=== PATIENT | male | born 1990 | race Caucasian/White ===

== ENCOUNTER 2019-11-18 22:38 | Emergency (ER) | payer OTHER ==
[~2019-11-18] VITALS: Ht 167.6 cm; Wt 103.3 kg
--- NOTE | 2019-11-18 22:52 | NUR ---
PT AMBULATORY TO ROOM, STEADY GAIT, NO SIGNS OF DISTRESS.
--- NOTE | 2019-11-18 23:11 | NUR ---
ERP HAS BEEN TO BEDSIDE. PT UPDATED ON POC, EDUCATED THAT COVID TEST RESULTS TAKE 24-48 HOURS TO RESULT. PT PLACED ON CARDIAC, BP AND O2 MONITORS. PT ON PHONE, NO SIGNS OF DISTRESS.
[2019-11-18 23:18] LABS: BASOPHILS # (AUTO) 0.05 x10^3/uL (0-0.1); BASOPHILS % (AUTO) 1 % (0-1); EOSINOPHILS # (AUTO) 0.05 x10^3/uL (0-0.4); EOSINOPHILS % (AUTO) 1 % (1-7); LYMPHOCYTES # (AUTO) 2.03 x10^3/uL (1-3.4); LYMPHOCYTES % (AUTO) 30 % (22-44); MD NO; MEAN CORPUSCULAR HEMOGLOBIN 31.8 pg (27.5-34.5); MEAN CORPUSCULAR HGB CONC 33.9 g/dL (33.2-36.2); MEAN CORPUSCULAR VOLUME 93.7 fL (81-97); MEAN PLATELET VOLUME 9.4 fL (7.4-10.4); MONOCYTES # (AUTO) 0.51 x10^3/uL (0.2-0.8); MONOCYTES % (AUTO) 8 % (2-9); NEUTROPHILS # (AUTO) 4.21 x10^3/uL (1.8-6.8); NEUTROPHILS % (AUTO) 61 % (42-75); PLATELET COUNT 216 x10^3/uL (130-400); RED BLOOD COUNT 5.52 x10^6/uL (4.38-5.82); RED CELL DISTRIBUTION WIDTH 13.2 % (9.4-14.8)
[2019-11-18 23:29] LABS: ALBUMIN 3.8 g/dL (3.4-5.0); ANION GAP 3 mmol/L (5-15); CALCIUM 8.8 mg/dL (8.5-10.1); CHLORIDE 109 mmol/L (98-107); CREATININE 1.43 mg/dL (0.7-1.3)
--- NOTE | 2019-11-19 00:20 | NUR ---
PT SLEEPING, EYE CLOSED, RESPIRATIONS EVEN AND UNLABORED, VSS, NO SIGNS OF DISTRESS.
[2019-11-19 01:03] VITALS: BP 114/71
== END 2019-11-19 01:05 | disposition home or self-care (01) ==
LOC: ED 23:08
DX: B34.9 Viral infection, unspecified (principal); R05 Cough; Z20.828 Contact with and (suspected) exposure to other viral communicable diseases; R94.31 Abnormal electrocardiogram [ECG] [EKG]
CPT/HCPCS: 36415; 71045; 80048; 82040; 85025; 87635; 93005; 99285

== ENCOUNTER 2020-02-04 16:31 | Emergency (ER) | payer OTHER ==
[~2020-02-04] VITALS: Ht 170.2 cm; Wt 102.0 kg
[2020-02-04 16:41] VITALS: BP 137/91
--- NOTE | 2020-02-04 19:48 | NUR ---
NO ANSWER IN LOBBY
--- NOTE | 2020-02-04 19:52 | NUR ---
NO ANSWER IN LOBBY
== END 2020-02-04 19:53 | disposition left against medical advice (07) ==
LOC: ED 19:30
DX: R43.0 Anosmia (principal); R43.2 Parageusia; R43.8 Other disturbances of smell and taste
CPT/HCPCS: 99281

== ENCOUNTER 2020-03-30 15:36 | Emergency (ER) | payer OTHER ==
[~2020-03-30] VITALS: Ht 167.6 cm; Wt 104.0 kg
[2020-03-30 15:42] VITALS: BP 143/84
[2020-03-30] MEDS ORDERED: FLUORESCEIN OPHTHALMIC 1 MG STRIP ONE (15:46)
[2020-03-30] MEDS ORDERED: PROPARACAINE OPHTH 0.5%, 15ML ONE ×2 (15:47→17:27)
== END 2020-03-30 17:57 | disposition home or self-care (01) ==
LOC: ED 17:11
DX: T15.01XA Foreign body in cornea, right eye, initial encounter (principal); X58.XXXA Exposure to other specified factors, initial encounter; Y93.89 Activity, other specified; Y92.89 Other specified places as the place of occurrence of the external cause; Y99.8 Other external cause status
CPT/HCPCS: 65220; 65222; 99283; 99284

== ENCOUNTER 2020-08-17 18:15 | Emergency (ER) | payer OTHER ==
[~2020-08-17] VITALS: Ht 172.7 cm; Wt 104.4 kg
[2020-08-17] MEDS ORDERED: LIDOCAINE 1%, 10ML INFIL ONE (18:30)
[2020-08-17] MEDS ORDERED: DIPH,PERTUSS(ACELL),TET VAC/PF 0.5 ML IM-VACC ONE ×2 (19:30→19:45)
[2020-08-17] MEDS ORDERED: LIDOCAINE-MPF 1%, 2ML ONE (19:49)
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
[2020-08-17 20:33] VITALS: BP 111/79
--- NOTE | 2020-08-17 20:44 | NUR ---
Patient given discharge instructions and they have confirmed that they understand the instructions. Patient ambulatory with steady gait. No questions at time of discharge.
== END 2020-08-17 20:54 | disposition home or self-care (01) ==
LOC: ED 20:15
DX: S60.412A Abrasion of right middle finger, initial encounter (principal); L03.113 Cellulitis of right upper limb; F17.210 Nicotine dependence, cigarettes, uncomplicated; X58.XXXA Exposure to other specified factors, initial encounter; Y93.89 Activity, other specified; Y92.89 Other specified places as the place of occurrence of the external cause; Y99.8 Other external cause status
CPT/HCPCS: 20600; 29125; 85810; 89050; 89060; 90471; 90715; 99406

== ENCOUNTER 2020-09-09 14:04 | Emergency (ER) | payer OTHER ==
[~2020-09-09] VITALS: Ht 170.2 cm; Wt 103.6 kg
[2020-09-09 15:23] LABS: ALANINE AMINOTRANSFERASE 53 U/L (12-78); ALBUMIN 4.2 g/dL (3.4-5.0); ANION GAP 7 mmol/L (5-15); C-REACTIVE PROTEIN, QUANT 0.07 mg/dL (0.02-0.49); CALCIUM 8.7 mg/dL (8.5-10.1); CHLORIDE 110 mmol/L (98-107)
[2020-09-09 15:26] LABS: ALKALINE PHOSPHATASE 76 U/L (45-117); BILIRUBIN,TOTAL 0.9 mg/dL (0.2-1.0); CREATININE 1.12 mg/dL (0.7-1.3); TOTAL PROTEIN 7.7 g/dL (6.4-8.2)
[2020-09-09 15:32] LABS: BASOPHILS % (AUTO) 1 % (0-1); EOSINOPHILS % (AUTO) 1 % (1-7); LYMPHOCYTES % (AUTO) 20 % (22-44); MEAN CORPUSCULAR HEMOGLOBIN 33.3 pg (27.5-34.5); MEAN PLATELET VOLUME 9.7 fL (7.4-10.4); MONOCYTES % (AUTO) 7 % (2-9); NEUTROPHILS % (AUTO) 71 % (42-75); PLATELET COUNT 232 x10^3/uL (130-400); RED BLOOD COUNT 5.35 x10^6/uL (4.38-5.82); RED CELL DISTRIBUTION WIDTH 13.2 % (9.4-14.8)
--- NOTE | 2020-09-09 16:19 | NUR ---
TASK RN: PT TO ROOM FROM [facility], GAIT STEADY.
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
[2020-09-09 17:11] VITALS: BP 137/79
--- NOTE | 2020-09-09 18:06 | NUR ---
rob Dubose at bedside for eval
--- NOTE | 2020-09-09 18:34 | NUR ---
discharge instructions reviewed, pt verbalized understanding. ambulatory to dc with steady gait
== END 2020-09-09 18:36 | disposition home or self-care (01) ==
LOC: ED 14:30
DX: M13.841 Other specified arthritis, right hand (principal); M12.841 Other specific arthropathies, not elsewhere classified, right hand
CPT/HCPCS: 36415; 80053; 85025; 85651; 86140; 99284